=== PATIENT | female | born 1980 | race African-American/Black ===

== ENCOUNTER 2017-01-31 19:45 | Emergency (ER) | payer OTHER ==
[~2017-01-31 19:45] MED LIST: CIPR500T94 PO; DIAZ5TAB PO; HYDR-971 PO; IBUP-1060 PO; NAPR500T PO; PRED20TA PO
[2017-01-31 20:55] VITALS: BP 178/105
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
== END 2017-01-31 21:30 | disposition home or self-care (01) ==
LOC: ER 19:45
DX: R41.0 Disorientation, unspecified (principal); F16.10 Hallucinogen abuse, uncomplicated; I10 Essential (primary) hypertension; E05.90 Thyrotoxicosis, unspecified without thyrotoxic crisis or storm; Z88.5 Allergy status to narcotic agent; Z88.6 Allergy status to analgesic agent
CPT/HCPCS: 81025; 99284

== ENCOUNTER 2017-02-20 23:48 | Emergency (ER) | payer OTHER ==
[~2017-02-20] VITALS: Ht 170.2 cm; Wt 63.5 kg
[2017-02-21] MEDS ORDERED: IV NORMAL SALINE 1000ML BAG 1,000 ML IV ONE (00:15)
[2017-02-21 00:18] LABS: BILIRUBIN,URINE NEGATIVE (NEG); GLUCOSE,URINE NEGATIVE (NEG); NITRITE,URINE NEGATIVE (NEG); PROTEIN,URINE NEGATIVE (NEG-TRACE); UROBILINOGEN,URINE 0.2 mg/dL (0.2 mg/dL)
[2017-02-21 00:20] LABS: NEG OBC UR NEG
[2017-02-21 00:21] LABS: POS OBC UR POS
[2017-02-21 00:23] LABS: BACTERIA,URINE 0 /HPF (0-FEW); RBC,URINE 0 /HPF (0-2); SQUAMOUS EPITHELIAL CELL,UR FEW /LPF; WBC,URINE OCC /HPF (0-4)
[2017-02-21 00:29] LABS: BARBITURATES NEG (NEG); BENZODIAZEPINES POS (NEG); CANNABINOIDS POS (NEG); COCAINE NEG (NEG); METHADONE NEG (NEG); OPIATES NEG (NEG); PHENCYCLIDINE POS (NEG)
[2017-02-21 00:56] LABS: BASO # 0.1 x10^3/uL (0.0-0.2); BASO % 1 % (0-3); EOS % 3 % (0-3); HEMATOCRIT 36.7 % (36.0-47.0); HEMOGLOBIN 12.1 g/dL (12.0-15.5); LYMPH # 1.2 x10^3/uL (1.0-4.8); LYMPH % 16 % (24-48); MEAN CORPUSCULAR HEMOGLOBIN 24 pg (25-35); MEAN CORPUSCULAR HGB CONC 33 g/dL (31-37); MEAN CORPUSCULAR VOLUME 71 fL (79-100); MONO % 6 % (0-9); NEUT % 74 % (31-73); PLATELET COUNT 172 x10^3/uL (140-400); RED BLOOD COUNT 5.13 x10^6/uL (3.50-5.40); RED CELL DISTRIBUTION WIDTH 15.3 % (11.5-14.5); WHITE BLOOD COUNT 7.7 x10^3/uL (4.0-11.0)
[2017-02-21 01:17] LABS: ALBUMIN/GLOBULIN RATIO 1.1 (1.0-1.7); CALCIUM 8.9 mg/dL (8.5-10.1); CREATININE 0.8 mg/dL (0.6-1.0); GFR 98.2; TOTAL BILIRUBIN 0.7 mg/dL (0.2-1.0); TOTAL PROTEIN 7.7 g/dL (6.4-8.2)
[2017-02-21 01:20] LABS: ETHANOL < 10 mg/dL (0-10)
[2017-02-21 01:22] LABS: POTASSIUM 2.9 mmol/L (3.5-5.1)
[2017-02-21 01:32] VITALS: BP 172/110
--- NOTE | 2017-02-21 01:32 | RAD ---
CT head without contrast: Reason for examination: Altered mental status. Axial images were obtained through the brain. No contrast was administered. Exposure: One or more of the following individualized dose reduction techniques were utilized for this examination: 1. Automated exposure control 2. Adjustment of the mA and/or kV according to patient size 3. Use of iterative reconstruction technique. Ventricular systems are symmetric and not abnormally dilated. No midline shift is seen. There is no evidence of intracranial hemorrhage, infarct, mass or contusion. No abnormalities are seen of the orbits. Paranasal sinuses show some mucosal disease in the ethmoid sinuses bilaterally. Mastoid air cells are clear. No acute skeletal abnormalities seen. IMPRESSION: No acute intracranial abnormality seen. Mucosal disease in the ethmoid air cells. Electronically signed by: Angy Dozier MD (02/21/2017 1:29 AM)
[2017-02-21] MEDS ORDERED: POTASSIUM CHLORIDE 20 MEQ/15 ML ORAL LIQUID. PO ONE (01:45)
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
[2017-02-21 04:44] LABS: PLT ESTIMATE ADEQUATE (ADEQUATE)
[2017-02-21 04:45] LABS: HYPOCHROMIA SLIGHT; MICROCYTOSIS MOD; OVALOCYTES FEW; POLYCHROMASIA SLIGHT; TARGET CELLS MOD
== END 2017-02-21 01:59 | disposition home or self-care (01) ==
LOC: ER 23:48
DX: F16.10 Hallucinogen abuse, uncomplicated (principal); F12.10 Cannabis abuse, uncomplicated; R41.82 Altered mental status, unspecified; E87.6 Hypokalemia; R41.0 Disorientation, unspecified; R45.1 Restlessness and agitation; I10 Essential (primary) hypertension; E05.90 Thyrotoxicosis, unspecified without thyrotoxic crisis or storm; Z98.51 Tubal ligation status; Z88.5 Allergy status to narcotic agent; Z88.6 Allergy status to analgesic agent
CPT/HCPCS: 36415; 70450; 80053; 80305; 81001; 81025; 85007; 85027; 96360; 99285; G0480; J7030; 80320; 80329; G0481